=== PATIENT | male | born 1950 | race Two or more races ===

== ENCOUNTER → 2020-11-13 | Outpatient (CLI) | payer MEDICARE | END | disposition home or self-care (01) | LOC: ROC 07:17 | PROVIDERS: ATTEND Radiology Radiation Oncology | DX: C61 Malignant neoplasm of prostate (principal); C79.51 Secondary malignant neoplasm of bone | CPT/HCPCS: 99214; G0463 ==

== ENCOUNTER 2020-12-15 09:40 | Outpatient (CLI) | payer MEDICARE ==
[~2020-12-15 09:40] MED LIST: HYDR-2214 PO
== END 2020-12-15 23:59 | disposition home or self-care (01) ==
LOC: ROC 09:40
PROVIDERS: ATTEND Radiology Radiation Oncology
DX: Z08 Encounter for follow-up examination after completed treatment for malignant neoplasm (principal); Z85.830 Personal history of malignant neoplasm of bone
CPT/HCPCS: 99212; G0463

== ENCOUNTER → 2021-02-28 | Outpatient (CLI) | payer MEDICARE ==
[~2021-02-28] MED LIST changes: +OXYC5TAB2 PO
== END | disposition home or self-care (01) ==
LOC: ROC 08:03
PROVIDERS: ATTEND Radiology Radiation Oncology
DX: Z08 Encounter for follow-up examination after completed treatment for malignant neoplasm (principal); Z85.830 Personal history of malignant neoplasm of bone
CPT/HCPCS: 99212; G0463